=== PATIENT | female | born 2005 ===

== ENCOUNTER 2025-05-26 16:39 | Emergency (ER) | payer SELFPAY ==
[2025-05-26 17:12] VITALS: BMI 29.2
--- NOTE | 2025-05-26 17:34 | PC.NURSE ---
called for pt from lobby/outside, no answerx1@ [id number]
--- NOTE | 2025-05-26 18:48 | PC.NURSE ---
called for pt from lobby/outside, no answerx2@ 2352
--- NOTE | 2025-05-26 20:16 | PC.NURSE ---
PT WAS CALLED THREE TIMES NO ANSWER 1847, 1948, 2016
== END 2025-05-26 20:17 | disposition left against medical advice (07) ==
PROVIDERS: Emergency Provider Emergency Medicine
DX: Z53.21 Procedure and treatment not carried out due to patient leaving prior to being seen by health care provider (principal)
CPT/HCPCS: 99281